=== PATIENT | male | born 1930 | race Caucasian/White ===

== ENCOUNTER 2018-03-14 14:51 | Emergency (ER) | payer MEDICARE, OTHER ==
[~2018-03-14 14:51] MED LIST: Sodium Chloride Irrig Solution 250 ML BOT ONE
== END 2018-03-14 15:40 | disposition home or self-care (01) ==
LOC: MADERS 14:51
DX: S91.332A Puncture wound without foreign body, left foot, initial encounter (principal); I10 Essential (primary) hypertension; Z79.899 Other long term (current) drug therapy; Z79.01 Long term (current) use of anticoagulants; W22.8XXA Striking against or struck by other objects, initial encounter
CPT/HCPCS: 99282

== ENCOUNTER 2018-04-19 12:42 | Emergency (ER) | payer MEDICARE, OTHER ==
[2018-04-19 13:31] LABS: #Neutrophils 4.5 thou/uL (1.40-6.50); %Basophils 1.1 % (0.0-1.0); %Lymphocytes 17.9 % (21.0-51.0); %Monocytes 11.3 % (0.0-10.0); %Neutrophils 66.6 % (42.0-75.0); Hemoglobin 10.9 g/dL (14.0-18.0); Mean Corpuscular HGB CONC 31.7 g/dL (32.0-36.0); Mean Corpuscular Hemoglobin 30.7 pg (27.0-31.0); Mean Corpuscular Volume 96.9 fL (78.0-98.0); Mean Platelet Volume 11.9 fL (7.4-10.4); Platelet Count 160 thou/uL (130-400); RBC Distribution Width 14.5 % (11.5-14.5); Red Blood Cell (RBC) Count 3.54 mill/uL (4.70-6.10); White Blood Cell (WBC) Count 6.7 thou/uL (4.8-10.8)
[2018-04-19 13:32] LABS: #Basophils 0.1 thou/uL (0.0-0.2); #Eosinphils 0.2 thou/uL (0.0-0.7); #Monocytes 0.8 thou/uL (0.11-0.59); Anisocytosis SLIGHT = 6-15 cells (100X) (0-5/hpf); Hypochromia SLIGHT = 6-15 cells (100X) (0-5/hpf); MDiff Complete? YES; Platelet Morphology Comment Appears Adequate
--- NOTE | 2018-04-19 13:34 | CT ---
CT CERVICAL SPINE WITHOUT CONTRAST: COMPARISON: None. HISTORY: Head trauma with neck pain. TECHNIQUE: Multiple contiguous axial images were obtained in a CT of the cervical spine without contrast. Sagit earnestine and coronal reformats were performed. FINDINGS: Moderate degenerative changes are seen in the cervical spine. The vertebral bodies demonstrate aleah l height and alignment without acute fracture or subluxation. No prevertebral soft tissue swelling i s seen. The posterior facets are well aligned. Normal alignment of the skull base with the cervical spine is seen. IMPRESSION: No evidence of acute osseous abnormality of the cervical spine. POS: [facility]
[2018-04-19 13:40] LABS: ALT (SGPT) 24 U/L (8-55); AST (SGOT) 44 U/L (5-34); Albumin 3.8 g/dL (3.4-4.8); Alkaline Phosphatase 108 U/L (40-150); Anion Gap 17 mmol/L (10-20); BUN (Urea Nitrogen) 22 mg/dL (8.4-25.7); Bilirubin, Total 1.7 mg/dL (0.2-1.2); Calc. Creatinine Clearance 0 mL/min (70-130); Calcium 9.7 mg/dL (7.8-10.44); Carbon Dioxide 26 mmol/L (23-31); Chloride 99 mmol/L (98-107); Estimated GFR-MDRD 49; Globulin 2.8 g/dL (2.4-3.5); Glucose 151 mg/dL (83-110); Potassium 3.3 mmol/L (3.5-5.1); Protein, Total 6.6 g/dL (5.8-8.1); Sodium 139 mmol/L (136-145)
--- NOTE | 2018-04-19 13:45 | CT ---
CT BRAIN NONCONTRAST: DATE: 04/19/2018 TIME: 1:05 p.m. HISTORY: An 87-year-old male status post acute head trauma. COMPARISON: 01/13/2014. FINDINGS: There is no midline shift or any other mass effect. There is no evidence of acute intracranial hemor rhage, obstructive hydrocephalus, or extraaxial fluid collection. The calvarium is intact. There is diffuse parenchymal volume loss. There are low attenuation areas in the white matter. These are no nspecific, but in a patient of this age, they are probably chronic ischemic white matter changes due to microvascular atherosclerosis. 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 There is associated atrophy of the left cerebral pedunc le. There is a new superficial scalp hematoma in the right supraorbital forehead. IMPRESSION: 1) No acute intracranial findings. 2) Involutional changes and chronic ischemic white matter changes. 3) Acute, traumatic right frontal supraorbital superficial soft tissue hematoma. 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 jn [] POS: [facility]
[2018-04-19] MEDS ORDERED: Lidocaine 1% w/Epinephrine 1:100K 30 ML VIAL ONE (13:56)
--- NOTE | 2018-04-19 14:03 | RAD ---
SINGLE VIEW OF THE CHEST: COMPARISON: 03/13/2014. HISTORY: Cough. FINDINGS: A single view of the chest shows an enlarged cardiomediastinal silhouette. There is a pacemaker with its leads in the right atrium and right ventricle. A third lead is difficult to see but may be in t he coronary sinus. A veil-like opacity in the inferior aspect of the left thorax may represent a sma ll pleural effusion. IMPRESSION: 1. Cardiomegaly. 2. Small left pleural effusion. POS: [facility]
[2018-04-19 14:04] LABS: Bilirubin Negative (Negative); Blood, Urine Negative (Negative); Clarity Hazy (Clear); Glucose, Urine (Dipstick) Negative (Negative); Leukocyte Small (Negative); Nitrite Negative (Negative); Protein, Urine (Dipstick) Negative (Neg-Trace); RBC/HPF 0-3 HPF (0-3); Specific Gravity, Urine 1.015 (1.005-1.030); Squamous Epithelial 0-3 HPF (0-3)
[2018-04-19 14:05] LABS: Bacteria/HPF Rare-Few HPF (None Seen)
[2018-04-19] MEDS ORDERED: Benzonatate 100 MG CAP ONE (14:11)
[2018-04-19] MEDS ORDERED: Potassium Chloride 20 MEQ TAB ONE (14:32)
[2018-04-19] MEDS ORDERED: Triple Antibiotic Oint 1 GM Packet ONE (14:32)
== END 2018-04-19 14:55 | disposition home or self-care (01) ==
LOC: MADERS 12:42
DX: S01.81XA Laceration without foreign body of other part of head, initial encounter (principal); E87.6 Hypokalemia; I11.0 Hypertensive heart disease with heart failure; I50.9 Heart failure, unspecified; Z79.899 Other long term (current) drug therapy; Z79.01 Long term (current) use of anticoagulants; W18.30XA Fall on same level, unspecified, initial encounter
CPT/HCPCS: 12052; 36415; 70450; 71045; 72125; 80053; 81003; 81015; 85025; J2001